=== PATIENT | female | born 2000 | race African-American/Black ===

== ENCOUNTER 2021-08-07 22:35 | Emergency (ER) | payer BC ==
[~2021-08-07] VITALS: Ht 167.6 cm; Wt 57.0 kg
[2021-08-08 00:56] LABS: BASOPHILS % 0.4 % (0.0-2.0); EOSINOPHILS % 1.9 % (0.0-5.0); HEMATOCRIT. 44.3 % (36.0-48.0); HEMOGLOBIN. 14.8 g/dL (12.0-16.0); LYMPHOCYTES % 35.4 % (20.0-50.0); MEAN CORPUSCULAR HEMOGLOBIN 28.6 pg (28.0-32.0); MEAN CORPUSCULAR VOLUME 85.4 fL (81.0-99.0); MEAN PLATELET VOLUME 7.4 fl (7.4-10.4); MONOCYTES % 8.3 % (2.0-8.0); PLATELET 354 x1000/uL (130-400); RED BLOOD CELL COUNT 5.18 mill/uL (4.2-5.4); RED CELL DISTRIBUTION WIDTH 13.3 % (11.6-14.6)
[2021-08-08 00:59] LABS: CHLORIDE 105 mEq/L (98-107)
[2021-08-08 03:23] LABS: CLARITY URINE CLEAR (CLEAR); COLOR URINE YELLOW (YELLOW); KETONES URINE TRACE (NEGATIVE); LEUKOCYTE ESTERASE URINE NEGATIVE (NEGATIVE); NITRITE URINE NEGATIVE (NEGATIVE); OCCULT BLOOD URINE NEGATIVE (NEGATIVE); PH URINE 6.5 (4.5-8.0); PROTEIN URINE NEGATIVE (NEGATIVE); SPECIFIC GRAVITY URINE 1.028 (1.005-1.030)
[2021-08-08 03:31] VITALS: BP 128/83
[2021-08-08] MEDS ORDERED: IBUPROFEN 600MG TABLET PO STA (03:31)
[2021-08-08] MEDS ORDERED: NAPR-681 PO (04:33)
== END 2021-08-08 05:39 | disposition home or self-care (01) ==
LOC: ER 22:35
DX: U07.1 COVID-19 (principal); M79.10 Myalgia, unspecified site
CPT/HCPCS: 36415; 71045; 80048; 81003; 81025; 85025; 87426; 93005; 99285